=== PATIENT | male | born 1935 | race Caucasian/White ===

== ENCOUNTER 2016-12-18 07:14 | Day surgery (SDC) | payer MEDICARE, OTHER ==
--- NOTE | ~2016-12-18 | EGD ---
EGD REPORT [facility] [address] [place]. [address] NAME: KARTHIK ERIC : 39 STATUS : REG [facility]#: [id number] AGE: 81 ADM/REG DATE : 12/18/16 MR#: [id number] REPORT SERV DATE: 12/18/16 DICTATED BY: DAVON ALARCON DATE: 12/18/16 REPORT STATUS : Draft TRANSCRIBED BY: [facility] DATE: 12/18/16 [facility] Patient Name: Karthik Eric Date of : 1935 Attending MD: DAVON ALARCON MD Procedure Date No Time: 12/18/2016 Procedure: Colonoscopy Indications: Hematochezia. Patient Profile: Informed consent was obtained from the patient by me prior to the procedure. Risks, benefits, and alternatives were discussed including the risk of bleeding, perforation, infection, reaction to medicine, missed lesion, and cardiopulmonary complications. Referring MD: AJ GONZALEZ Medicines: Monitored Anesthesia Care Complications: No immediate complications. Procedure: Pre-Anesthesia Assessment: - ASA Grade Assessment: III - A patient with severe systemic disease. After I obtained informed consent, the scope was passed under direct vision. Throughout the procedure, the patient's blood pressure, pulse, and oxygen saturations were monitored continuously. The PCF [id number] was introduced through the anus and advanced to the cecum, identified by appendiceal orifice and ileocecal valve. The colonoscope was slowly withdrawn with careful examination all mucosal surfaces including specific attention around flexures and tip deflection behind folds; retroflexion performed in rectum. The colonoscopy was performed without difficulty. The patient tolerated the procedure well. The quality of the bowel preparation was adequate. The ileocecal valve, appendiceal orifice and rectum were photographed. Findings: A sessile polyp was found at the hepatic flexure. The polyp was 5 mm in size. The polyp was removed with a cold biopsy forceps. Resection and retrieval were complete. A pedunculated polyp was found in the proximal ascending colon. The polyp was 12 mm in size. The polyp was removed with a hot snare. Resection and retrieval were complete. One hemostatic clip was successfully placed to close defect, needs anticoagulation; magnet utilized over ICD. A sessile polyp was found in the transverse colon. The polyp was 5 mm in size. The polyp was removed with a cold biopsy forceps. Resection and EGD REPORT [address] [address] NAME: KARTHIK ERIC : [birth year] STATUS : REG [facility]#: [id number] AGE: 81 ADM/REG DATE : 12/18/16 MR#: [id number] REPORT SERV DATE: 12/18/16 DICTATED BY: DAVON ALARCON DATE: 12/18/16 REPORT STATUS : Draft TRANSCRIBED BY: [employer] DATE: 12/18/16 retrieval were complete. A sessile polyp was found in the descending colon. The polyp was 5 mm in size. The polyp was removed with a cold biopsy forceps. Resection and retrieval were complete. Internal hemorrhoids were found during retroflexion and were moderate. Impression: - One 5 mm polyp at the hepatic flexure. Resected and retrieved. - One 12 mm polyp in the proximal ascending colon. Resected and retrieved. Clip was placed. - One 5 mm polyp in the transverse colon. Resected and retrieved. - One 5 mm polyp in the descending colon. Resected and retrieved. - Internal hemorrhoids. Recommendation: - Patient has a contact number available for emergencies. The signs and symptoms of potential delayed complications were discussed with the patient. Return to normal activities tomorrow. Written discharge instructions were provided to the patient. - Regular diet. - Continue present medications. - Await pathology results. - Repeat colonoscopy for surveillance based on pathology results. - Restart ASA/Plavix today. Procedure Code(s): --- Professional --- 14423, Colonoscopy, flexible, proximal to splenic flexure; with removal of tumor(s), polyp(s), or other lesion(s) by snare technique 08800, 59, Colonoscopy, flexible, proximal to splenic flexure; with biopsy, single or multiple Diagnosis Code(s): --- Professional --- D12.4, Benign neoplasm of descending colon D12.2, Benign neoplasm of ascending colon D12.3, Benign neoplasm of transverse colon K64.8, Other hemorrhoids K92.1, Melena CPT copyright 2013 [employer]. All rights reserved. The codes documented in this report are preliminary and upon lobster catcher review may be revised to meet current compliance requirements. EGD REPORT [facility] [address] [address] NAME: KARTHIK ERIC : 39 STATUS : REG [facility] PAT#: [id number] AGE: 81 ADM/REG DATE : 12/18/16 MR#: [id number] REPORT SERV DATE: 12/18/16 DICTATED BY: DAVON ALARCON. DATE: 12/18/16 REPORT STATUS : Draft TRANSCRIBED BY: [employer] DATE: 12/18/16 DAVON ALARCON MD 12/18/2016 9:53 AM This report has been signed electronically. Number of Addenda: 0 Note Initiated On: 12/18/2016 9:12 AM Scope Withdrawal Time 0 hours 18 minutes 37 seconds [address] [id number]
[~2016-12-18 07:14] MED LIST: ASAB PO; BACDS PO; COREG3 PO; COREG6 PO; DSS PO; KEPPRA750 MG PO; MAX25 PO; NAC 600 PO; NORCO1 TA1 PO; PLAVIX PO; PRAVAC PO; PRILOSEC OTC20 MG PO; PRIN2.5 PO; T PO; ULORIC40 MG PO
[2016-12-18 08:08] LABS: BASOPHILS 0.4 %; BASOPHILS ABSOLUTE 0.03 10/3/uL (0.0-0.16); EOSINOPHILS 4.7 %; EOSINOPHILS ABSOLUTE 0.38 10/3/uL (0.0-0.53); HEMATOCRIT 38.6 % (40.0-51.0); HEMOGLOBIN 12.8 g/dL (13.6-17.8); IMMATURE GRANULOCYTES 0.1 %; IMMATURE GRANULOCYTES ABSOLUTE 0.01 10/3/uL (0.0-0.11); LYMPHOCYTES ABSOLUTE 2.66 10/3/uL (0.67-4.30); MEAN CORPUS HGB CONC 33.2 g/dL (32.0-36.0); MEAN CORPUSCULAR HEMOGLOB 30.5 pg (26.0-34.0); MEAN CORPUSCULAR VOLUME 91.9 fL (80-100); MEAN PLATELET VOLUME 8.4 fL (9.2-13.0); MONOCYTES 8.1 %; MONOCYTES ABSOLUTE 0.65 10/3/uL (0.21-1.20); NEUTROPHILS 53.7 %; NEUTROPHILS ABSOLUTE 4.33 10/3/uL (2.02-8.40); PLATELET COUNT 199 10/3/uL (150-400); RBC DISTRIBUTION WIDTH 13.5 % (12.0-16.0); WHITE BLOOD CELLS 8.1 10/3/uL (4.5-10.5)
[2016-12-18 08:10] LABS: MANUAL DIFF NO %
== END 2016-12-18 23:59 | disposition home or self-care (01) ==
LOC: DMU 07:14
PROVIDERS: Internal Medicine Gastroenterology
PROC: 0DBK8ZX Excision of Ascending Colon, Via Natural or Artificial Opening Endoscopic, Diagnostic (ICD-10-PCS; 2016-12-18)
PROC: 0DBM8ZX Excision of Descending Colon, Via Natural or Artificial Opening Endoscopic, Diagnostic (ICD-10-PCS; 2016-12-18)
PROC: 0DBL8ZX Excision of Transverse Colon, Via Natural or Artificial Opening Endoscopic, Diagnostic (ICD-10-PCS; principal; 2016-12-18 08:30)
PROC: 0DBE8ZX Excision of Large Intestine, Via Natural or Artificial Opening Endoscopic, Diagnostic (ICD-10-PCS; 2016-12-18 08:30)
DX: D12.4 Benign neoplasm of descending colon (principal); D12.2 Benign neoplasm of ascending colon; D12.3 Benign neoplasm of transverse colon; K64.8 Other hemorrhoids; E78.00 Pure hypercholesterolemia, unspecified; I25.10 Atherosclerotic heart disease of native coronary artery without angina pectoris; I25.5 Ischemic cardiomyopathy; I10 Essential (primary) hypertension; G40.909 Epilepsy, unspecified, not intractable, without status epilepticus; Z95.5 Presence of coronary angioplasty implant and graft
CPT/HCPCS: 85025; 88305; 93288